=== PATIENT | male | born 1990 | race African-American/Black ===

== ENCOUNTER 2017-05-10 04:42 | Emergency (ER) | END 2017-05-10 05:38 | disposition home or self-care (01) ==

== ENCOUNTER 2017-06-06 19:19 | Emergency (ER) | END 2017-06-06 21:34 | disposition home or self-care (01) ==

== ENCOUNTER 2018-08-02 17:57 | Emergency (ER) | payer MEDICAID, OTHER ==
[~2018-08-02] VITALS: Wt 83.0 kg
[~2018-08-02 17:57] MED LIST: ANR PR; DOCU-144 PO; HYDR30CR75 PR; POLY17PO6 PO
[2018-08-02] MEDS ORDERED: IBUP-1542 PO (18:55)
[2018-08-02] MEDS ORDERED: IBUPROFEN 600 MG TAB PO ONE (19:00)
[2018-08-02 19:16] VITALS: BP 123/57; PULSE 57; RESP 18
--- NOTE | 2018-08-02 20:57 | ERD ---
ER Documentation Chief Complaint Chief Complaint HEMORRHOIDS HPI 27-year-old male with no sniffing past medical history presenting to the emergency department complaining of changes to his stool as well as rectal pain during bowel movements intermittently for the past 1 year. Symptoms have been worsening over the past several days. He states he saw a colorectal surgeon who scheduled a colonoscopy. He states he has been trying Dulcolax suppositories as well as hydrocortisone cream without significant relief. He denies any abdominal pain, nausea, vomiting, diarrhea, fevers, chills, or other symptoms at this time. Symptoms are currently mild in severity. ROS All systems reviewed and are negative except as per history of present illness. Medications Home Meds Active Scripts Ibuprofen* (Motrin*) 600 Mg Tab, 600 MG PO Q6, #30 TAB Prov:KAYY FRANCOIS PA-C 08/02/18 Docusate Sodium* (Colace*) 100 Mg Capsule, 100 MG PO TID, #30 CAP Prov:AYAD LINCOLN 06/06/17 Hard Fat/Phenylephrine* (Anusol*) 1 Supp Supp, 1 SUPP KY QHS for 3 Days, SUPP Prov:AYAD LINCOLN 06/06/17 Polyethylene Glycol* (Miralax*) 17 Gm Powd.pack, 8.5 GM PO DAILY, #15 PACKET Prov:DANNY WILL PA-C 05/10/17 Hydrocortisone Acetate* (Anusol-HC*) 30 Gm Cream.gm., 1 APPLIC [place] BID, #1 TUB Prov:DANNY WILL PA-C 05/10/17 Allergies Allergies: Coded Allergies: No Known Allergy (Unverified , 05/10/17) PMhx/Soc History of Surgery: Yes (RECONSTRUCTIVE SURG (FACIAL)) Anesthesia Reaction: No Hx Neurological Disorder: No Hx Respiratory Disorders: No Hx Cardiac Disorders: No Hx Psychiatric Problems: No Hx Miscellaneous Medical Probl: Yes (Hemorrhoids) Hx Alcohol Use: Yes (OCCASSIONALLY) Hx Substance Use: Yes (MARIJUANA) Hx Tobacco Use: Yes (QUIT 2013) Smoking Status: Former smoker FmHx Family History: No diabetes Physical Exam Vitals Vital Signs Date Temp Pulse Resp B/P (MAP) Pulse Ox O2 O2 Flow FiO2 Time Delivery Rate 08/02/18 98.6 57 18 123/57 98 Room Air 19:16 (79) 5/25/19 99.2 78 18 119/73 99 17:58 (88) Physical Exam Const: No acute distress Head: Atraumatic Eyes: Normal Conjunctiva ENT: Normal External Ears, Nose and Mouth. Neck: Full range of motion. No meningismus. Resp: No respiratory distress. RECTAL: Consent Obtained Sphincter tone is normal. No external hemorrhoids seen. No evidence of anal fissure or internal hemorrhoids. Unable to complete digital rectal examination secondary to pain. Patient is requesting exam to be stopped. Skin: No petechiae or rashes Back: No midline or flank tenderness Ext: No cyanosis, or edema Neur: Awake and alert Psych: Normal Mood and Affect Results 24 hrs Current Medications Medications Dose Sig/Sarina Start Time Status Last (Trade) Ordered Route PRN Stop Time Admin Dose Reason Admin Ibuprofen 600 mg ONCE ONCE 08/02/18 DC 08/02/18 (Motrin) PO 19:00 18:59 08/02/18 19:01 Procedures/MDM 27-year-old male presenting to the emergency department with complaints of intermittent rectal pain and changes in his bowel movements intermittently for the past 1 year. The patient did have an appointment with a colorectal surgeon who scheduled a colonoscopy within the next 5 weeks. Patient was nontoxic and afebrile and well-appearing. He had no external hemorrhoids noted. I was unable to complete a digital rectal examination due to patient complaining of pain. Therefore, I was unable to confidently clinically exclude internal hemo rrhoids or abnormal rectal masses. Patient was advised he must follow-up with his primary care physician and colorectal surgeon within the next 24 to 48 hours. He is otherwise stable for discharge and further outpatient management. He will be given prescription for ibuprofen and he was advised to continue Dulcolax suppositories and topical hydrocortisone at home. No evidence of life- threatening or emergent pathology. The patient was in agreement with the diagnosis, plan, need for follow-up, return precautions. Departure Diagnosis: Primary Impression: Rectal pain Condition: Fair Patient Instructions: Treating Hemorrhoids: Surgery Referrals: [facility] YOU HAVE RECEIVED A MEDICAL SCREENING EXAM AND THE RESULTS INDICATE THAT YOU DO NOT HAVE A CONDITION THAT REQUIRES URGENT TREATMENT IN THE EMERGENCY DEPARTMENT. FURTHER EVALUATION AND TREATMENT OF YOUR CONDITION CAN WAIT UNTIL YOU ARE SEEN IN YOUR DOCTORS OFFICE WITHIN THE NEXT 1-2 DAYS. IT IS YOUR RESPONSIBILITY TO MAKE AN APPOINTMENT FOR FOLOW-UP CARE. IF YOU HAVE A PRIMARY DOCTOR --you should call your primary doctor and schedule an appointment IF YOU DO NOT HAVE A PRIMARY DOCTOR YOU CAN CALL OUR PHYSICIAN REFERRAL HOTLINE AT IF YOU CAN NOT AFFORD TO SEE A PHYSICIAN YOU CAN CHOSE FROM THE FOLLOWING [facility] [address] [facility] [address] [facility] [address] [facility] [address] [facility] [address] [facility] [facility] [address] Additional Instructions: Call your primary care doctor TOMORROW for an appointment during the next 1-2 d ays.See the doctor sooner or return here if your condition worsens before your appointment time. KAYY FRANCOIS PA-C August 02, 2018 20:57
== END 2018-08-02 19:18 | disposition home or self-care (01) ==
LOC: FTE 17:57
DX: K62.89 Other specified diseases of anus and rectum (principal); Z87.891 Personal history of nicotine dependence
CPT/HCPCS: Z7502; Z7610; 99284